=== PATIENT | female | born 1995 | race Caucasian/White ===

== ENCOUNTER 2018-12-30 15:19 | Emergency (ER) | payer OTHER ==
[~2018-12-30] VITALS: Ht 180.3 cm; Wt 80.0 kg
[2018-12-30 15:25] VITALS: BP 132/86
== END 2018-12-30 19:39 | disposition left against medical advice (07) ==
LOC: ER 16:02
DX: F41.9 Anxiety disorder, unspecified (principal); Z53.21 Procedure and treatment not carried out due to patient leaving prior to being seen by health care provider